=== PATIENT | male | born 1960 | race Caucasian/White ===

== ENCOUNTER 2019-11-08 09:35 | Outpatient (CLI) | payer OTHER ==
--- NOTE | 2019-11-08 11:40 | CT ---
EXAM: CT FACE POSTCONTRAST CT NECK SOFT TISSUE POST CONTRAST: HISTORY:Left-sided neck swelling. Surgery for abscess tooth in September 2019. COMPARISON:None CORRELATION:None FINDINGS: Orbits: Bilateral ocular lenses are appropriately located. Both globes are intact. Retrobulbar fat is preserved. Symmetric attenuation of the optic nerves and ocular rectus muscles. Brain parenchyma: No pathologic enhancement of the visualized brain parenchyma. Sinuses: Right maxillary sinus mucosal disease. Nasopharynx:Adequate aeration. No mucosal abnormality. Oral cavity:Limited evaluation the oral cavity due to dental amalgam artifact. No obvious masses. Mid line fatty raphae of the tongue appears to be preserved. There is a defect involving the posterior body of the left mandible compatible with a extracted tooth. The defect appears to involve the inferi or most aspect of the mandible, extending medially. Small focus of air in the resection cavity is identified. There is a possible nondisplaced fracture on the medial aspect of the mandible (image 48, series 602). The resultant resection cavity in the left mandible measures 0.6 x 1.2 cm. No obvious inflammatory change in the left sublingual space or in the soft tissues along the left mandible. Hypopharynx: No mucosal abnormality. Larynx: No mucosal abnormality. Paraspinal muscles: Symmetric attenuation of the paraspinal muscles and symmetric attenuation of the sternocleidomastoid muscles. There does not appear to be a soft tissue mass or abscess. Parotid and salivary glands: Symmetric fatty replacement of both parotid glands. Symmetric attenuatio n of the submandibular glands. No evidence of inflammatory change. Thyroid gland: Asymmetric enlargement right thyroid lobe. Nonemergent thyroid ultrasound is recommend ed.. Spine: No evidence of fracture. There is anterior fusion changes from C3 through C5 without perihardw are lucency. There are varying degrees of central canal stenosis and foraminal narrowing, due to degenerative change. Lymph nodes: No evidence of lymphadenopathy by size criteria Lung apices and upper mediastinum: Chronic changes to the visualized lung parenchyma. No acute abnorm ality in the upper mediastinum. IMPRESSION: 1. Resection of a posterior left mandibular tooth. Resection cavity has a small focus of air and soft tissue attenuation which is nonspecific. No evidence of inflammatory change in the adjacent soft tissues. 2. There does appear to be erosion at the apex of the previous removed tooth. There also is a subtle lucency and defect in the medial mandible just posterior to the area of resection. Significance of this defect is uncertain but may represent a small fracture. 3. No evidence of a drainable abscess in the left face or neck. Transcribed Date/Time: 11/08/2019 11:49 AM
== END 2019-11-08 09:36 | disposition home or self-care (01) ==
LOC: SCSCT 09:35
PROVIDERS: ATTEND Dentist Oral and Maxillofacial Surgery
DX: L02.11 Cutaneous abscess of neck (principal); M27.2 Inflammatory conditions of jaws
CPT/HCPCS: 70487; 70491

== ENCOUNTER 2020-06-16 09:18 | Outpatient (CLI) | payer OTHER ==
--- NOTE | 2020-06-16 09:34 | RAD ---
EXAM: Two views chest PROVIDED CLINICAL HISTORY: Dyspnea COMPARISON: 11/14/2017 FINDINGS: Cardiac and mediastinal silhouette appears within normal limits. Chronic appearing interstitial opaci ties, similar to prior. No focal consolidation evident. No pleural fluid or pneumothorax apparent. IMPRESSION: No evidence for an acute cardiopulmonary process.
== END 2020-06-16 09:19 | disposition home or self-care (01) ==
LOC: BICRAD 09:18
PROVIDERS: ATTEND Internal Medicine Critical Care Medicine
DX: R06.00 Dyspnea, unspecified (principal)
CPT/HCPCS: 71046

== ENCOUNTER 2020-06-28 19:00 | Outpatient (CLI) | payer OTHER | END 2020-06-28 19:01 | disposition home or self-care (01) | LOC: SLEEPLAB 19:00 | PROVIDERS: ATTEND Internal Medicine Critical Care Medicine | DX: G47.33 Obstructive sleep apnea (adult) (pediatric) (principal); G47.10 Hypersomnia, unspecified; R06.83 Snoring; E66.9 Obesity, unspecified; Z68.41 Body mass index [BMI] 40.0-44.9, adult | CPT/HCPCS: 95811 ==

== ENCOUNTER 2021-07-23 10:05 | Outpatient (CLI) | payer OTHER | END 2021-07-23 10:06 | disposition home or self-care (01) | LOC: RAD 10:05 | PROVIDERS: ATTEND Internal Medicine Critical Care Medicine | DX: R06.00 Dyspnea, unspecified (principal) | CPT/HCPCS: 71046 ==

== ENCOUNTER 2022-11-12 12:04 | Outpatient (CLI) | payer BC | END 2022-11-12 12:05 | disposition home or self-care (01) | LOC: RAD 12:04 | PROVIDERS: ATTEND Internal Medicine Critical Care Medicine | DX: R06.00 Dyspnea, unspecified (principal) | CPT/HCPCS: 71046 ==

== ENCOUNTER 2023-06-22 18:42 | Emergency (ER) | payer BC ==
[2023-06-22 21:44] LABS: Bacteria/HPF None Seen HPF (None Seen); Bilirubin Negative (Negative); Blood, Urine Negative (Negative); Clarity Clear (Clear); Glucose, Urine (Dipstick) Normal (Negative); Ketone, Urine Negative (Negative); Leukocyte Negative Leu/uL (Negative); Nitrite Negative (Negative); Protein, Urine (Dipstick) 30 mg/dL (Neg-Trace); RBC/HPF 0-3 HPF (0-3); Specific Gravity, Urine 1.034 (1.002-1.036); Squamous Epithelial None Seen HPF (0-3); WBC/HPF 0-3 HPF (0-3)
[2023-06-22 21:45] LABS: CAUTI Indications for Culture Pelvic or flank pain
[2023-06-22 21:46] LABS: Urine Culture Reflex No No
[2023-06-22] MEDS ORDERED: HYDROcodone/Acetaminophen 5/325 mg Tablet ONE (21:56)
[2023-06-22] MEDS ORDERED: Ketorolac Tromethamine 30 MG/ML VIAL ONE (21:56)
[2023-06-22] MEDS ORDERED: Cyclobenzaprine 10 MG TAB ONE (21:56)
== END 2023-06-22 22:15 | disposition home or self-care (01) ==
LOC: ERS 18:42
DX: M54.16 Radiculopathy, lumbar region (principal); E11.9 Type 2 diabetes mellitus without complications; I10 Essential (primary) hypertension
CPT/HCPCS: 72100; 81001; 96372; J1885

== ENCOUNTER 2024-04-14 09:53 | Outpatient (CLI) | payer BC ==
[2024-04-14 11:46] LABS: Hemoglobin 14.7 g/dL (13.5-17.5); Mean Corpuscular HGB CONC 33.4 g/dL (32.0-36.0); Mean Corpuscular Hemoglobin 28.1 pg (27.0-33.0); Mean Corpuscular Volume 84.1 fL (81.2-95.1); Mean Platelet Volume 11.3 fL (7.4-10.4); Platelet Count 279 10x3/uL (150-450); RBC Distribution Width 13.1 % (11.5-14.5); Red Blood Cell (RBC) Count 5.23 10x6/uL (4.32-5.72); White Blood Cell (WBC) Count 7.9 10x3/uL (3.5-10.5)
[2024-04-14 11:59] LABS: PTT 29.3 sec (22.0-33.0); Prothrombin Time 11.1 sec (9.5-12.1)
[2024-04-14 12:00] LABS: Anion Gap 12 mmol/L (10-20); BUN (Urea Nitrogen) 15 mg/dL (8.4-25.7); Calc. Creatinine Clearance 0 mL/min (70-130); Calcium 9.3 mg/dL (7.8-10.44); Carbon Dioxide 25 mmol/L (23-31); Chloride 106 mmol/L (98-107); Estimated GFR 87; Glucose 121 mg/dL (80-115); Potassium 4.1 mmol/L (3.5-5.1); Sodium 139 mmol/L (136-145)
[2024-04-14 13:16] LABS: Bilirubin Neg (Negative); Blood, Urine Negative (Negative); Clarity Clear (Clear); Glucose, Urine (Dipstick) Normal (Negative); Ketone, Urine Negative (Negative); Leukocyte Negative (Negative); Nitrite Negative (Negative); Protein, Urine (Dipstick) Negative (Neg-Trace)
[2024-04-14 14:02] LABS: Bacteria/HPF Rare-Few HPF (None Seen); Squamous Epithelial 0-3 HPF (0-3); WBC/HPF 0-3 HPF (0-3)
[2024-04-14 14:03] LABS: RBC/HPF None Seen HPF (0-3)
== END 2024-04-14 09:54 | disposition home or self-care (01) ==
LOC: LABBT 09:53
PROVIDERS: ATTEND Urology
DX: Z01.818 Encounter for other preprocedural examination (principal); E11.9 Type 2 diabetes mellitus without complications; G47.33 Obstructive sleep apnea (adult) (pediatric); M50.90 Cervical disc disorder, unspecified, unspecified cervical region; N20.0 Calculus of kidney; I10 Essential (primary) hypertension; N40.1 Benign prostatic hyperplasia with lower urinary tract symptoms; E66.9 Obesity, unspecified; K42.9 Umbilical hernia without obstruction or gangrene; R97.20 Elevated prostate specific antigen [PSA]; R35.0 Frequency of micturition; Z98.890 Other specified postprocedural states; Z68.39 Body mass index [BMI] 39.0-39.9, adult
CPT/HCPCS: 71046; 80048; 81001; 84153; 85027; 85610; 85730; 87086; 93005; 93010